=== PATIENT | male | born 2000 | race Caucasian/White ===

== ENCOUNTER 2018-06-08 22:11 | Emergency (ER) | payer OTHER | END 2018-06-08 23:29 | disposition home or self-care (01) | LOC: M ED 22:11 | DX: L25.9 Unspecified contact dermatitis, unspecified cause (principal); R59.0 Localized enlarged lymph nodes; Z87.891 Personal history of nicotine dependence | CPT/HCPCS: 76536 ==

== ENCOUNTER 2018-12-21 17:12 | Emergency (ER) | payer OTHER ==
[~2018-12-21] VITALS: Ht 170.2 cm; Wt 68.2 kg
[2018-12-21 17:12] VITALS: BP 148/89
[~2018-12-21 17:12] MED LIST: TRIA1CR80 TOP
[2018-12-21] MEDS ORDERED: IBUPROFEN 800 MG TAB PO ONE (18:00)
[2018-12-21] MEDS ORDERED: PILL CUTTER 1 EACH XX ONE (18:07)
--- NOTE | 2018-12-22 08:00 | REP ---
LEFT ANKLE, FOUR VIEWS: Four views left ankle performed. There may be a subtle nondisplaced cortical fracture of the lateral aspect of the distal fibula. There is overlying soft tissue swelling. I see no other evidence of acute fracture or dislocation. The ankle mortise is anatomic. Electronically Signed by Tayo Rivera MD 12/22/2018 08:42 A
== END 2018-12-21 19:15 | disposition home or self-care (01) ==
LOC: M ED 17:12
DX: S82.65XA Nondisplaced fracture of lateral malleolus of left fibula, initial encounter for closed fracture (principal); W10.8XXA Fall (on) (from) other stairs and steps, initial encounter; Y92.099 Unspecified place in other non-institutional residence as the place of occurrence of the external cause; Y93.89 Activity, other specified; Y99.9 Unspecified external cause status; F17.220 Nicotine dependence, chewing tobacco, uncomplicated

== ENCOUNTER 2019-09-22 03:30 | Emergency (ER) | payer OTHER ==
[~2019-09-22] VITALS: Ht 172.7 cm; Wt 71.7 kg
[2019-09-22] MEDS ORDERED: HYDROCORTISONE 1% CREAM 30 GM TOP ONE (04:30)
[2019-09-22 04:41] VITALS: BP 124/68
== END 2019-09-22 05:05 | disposition home or self-care (01) ==
LOC: M ED 03:30
DX: L98.8 Other specified disorders of the skin and subcutaneous tissue (principal); F17.200 Nicotine dependence, unspecified, uncomplicated; F17.290 Nicotine dependence, other tobacco product, uncomplicated